=== PATIENT | female | born 1965 | race Caucasian/White ===

== ENCOUNTER → 2021-12-26 | Outpatient (CLI) | payer MEDICARE ==
[~2021-12-26] MED LIST: REGADENOSON 0.4 MG/5 ML SYRINGE IV PRN
--- NOTE | 2021-12-26 11:38 | NM ---
EXAMINATION TYPE: NM stress lexiscan cardiolite DATE OF EXAM: 12/26/2021 COMPARISON: NONE HISTORY: Chest pain TECHNIQUE: After the intravenous administration of 9.36 mCi Tc 99m Sestamibi - Cardiolite resting SP ECT images acquired 60 minutes post injection. The patient received 0.4mg Lexiscan, 24.3 mCi Tc 99m Sestamibi - Stress images obtained [address] injection FINDINGS: Review of stress and rest SPECT images demonstrates small fixed areas of perfusion abnormality involv ing the anterior wall which may be artifactual rather than representing remote tiny areas of infarcti on. Correlate clinically. Gated analysis shows normal wall motion with an estimated left ventricular ejection fraction of 75 %. IMPRESSION: No scintigraphic evidence for reversible ischemia. See above.
--- NOTE | 2021-12-26 12:40 | CA ---
Lexiscan Nuclear Stress Test Report Name: Alberta Nathan Exam Date: 12/26/2021 10:11 Exam Location: [place] Stress Ht (in): 60 Wt (lb): 180 BSA: 1.78 Ordering Phys: Lorena Ta DO Referring Phys: Lorena Ta DO Technologist: Dank Locke Age: 56 Gender: F : 1965 Procedure CPT: Indications: I49.9 ARRYTHMIA R07.9 CHEST PAIN R42 DIZZINESS ICD-10 Codes: Patient History: CHEST PAIN, DIFFICULTY IN BREATHING, ELEVATED CHOLESTEROL LEVELS, FAMILY HX OF HEART DISEASE, PRIOR SMOKER QUIT 7 YEARS (1 PPD X 20 YEARS) Medications: SEE LIST Meds past 24 hrs: Pretest Chest Pain: STRESS TEST Lexiscan Protocol Exercise Duration (min:sec): 02:[address] Depressions (mm): Angina Score: Kent Score: Resting HR (bpm): 86 Peak HR (bpm): 108 Resting BP (mmHg): 129 / 88 Peak BP (mmHg): 132 / 92 MPHR: 163 Target HR: 139 % MPHR: 66 METS: 1.0 Total Dose: Peak Dose: Atropine: Double Product: 41335 BP Response: Stress Termination: Stress Symptoms: Stress Summary: ECG ANALYSIS Resting ECG: Stress ECG: CONCLUSIONS Non-diagnostic electrocardiogram stress testing in response to Lexiscan Please follow up on the Cardiolite portion Dr. Pranay Prince MD (Electronically Signed) Final Date: 26 December 2021 12:39
== END | disposition home or self-care (01) ==
LOC: RADNMMAIN 08:32
PROVIDERS: ATTEND Family Medicine
DX: I49.9 Cardiac arrhythmia, unspecified (principal); Z87.891 Personal history of nicotine dependence
CPT/HCPCS: 93017; 78452; A9500; J2785